=== PATIENT | female | born 1950 | race Caucasian/White ===

== ENCOUNTER 2016-07-22 09:18 | Emergency (ER) | payer MEDICAID ==
[2016-07-22 09:24] VITALS: BP 146/82
--- NOTE | 2016-07-22 11:11 | ER Document Report ---
ED General - General Time seen by provider: 10:20 Mode of Arrival: Ambulatory Information source: Patient TRAVEL OUTSIDE OF THE [place] IN LAST 30 DAYS: No - HPI Onset: Other - see HPI note - General Chief Complaint: Back Pain Stated Complaint: BACK PAIN Notes: Patient is a 65 year old female presenting to the emergency department for chronic back pain. Patient states that she has had 3 years of chronic back pain. Patient states that her pain management stopped giving her narcotics and wanted to start doing epidural shots. Patient does not want these and is requesting narcotic pain medication. Patient states she got some narcotics from her PCP, Geovanna Zhou, a week ago; patient got 3 days supplies of this medication. Patient has had no recent injury to her back. Patient denies any nausea, vomiting, or diarrhea. Patient has a history of degenerative bone disease, arthritis, and back spurs. Patient states her pain management doctors are going to send her to [place] [facility]. (MAXINE STOCKTON) - Related Data Allergies/Adverse Reactions: diphenhydramine HCl [From Benadryl] Allergy (Severe, Verified 07/22/16 12:36) Generalized Itching theophylline anhydrous [From Tj-Dur] Allergy (Intermediate, Verified 07/22/16 12:36) heart races triprolidine HCl [From Actifed] Allergy (Mild, Verified 07/22/16 12:36) skin crawls metoclopramide HCl [From Reglan] Allergy (Verified 07/22/16 12:36) anxious pseudoephedrine HCl [From Actifed] Adverse Reaction (Mild, Verified 07/22/16 12: 36) skin crawls Past Medical History - General Information source: Patient - Social History Smoking Status: Former Smoker Cigarette use (# per day): No Chew tobacco use (# tins/day): No Frequency of alcohol use: None Drug Abuse: None Family History: None Patient has suicidal ideation: No Patient has homicidal ideation: No - Past Medical History Cardiac Medical History: Reports: Hx Hypercholesterolemia, Hx Hypertension Pulmonary Medical History: Reports: Hx Asthma, Hx Bronchitis, Hx COPD Endocrine Medical History: Reports: 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 GI Medical History: Reports: Hx Gastroesophageal Reflux Disease, Hx Hiatal Hernia, Hx Ulcer - BLAS'S ESOPHAGUS Musculoskeltal Medical History: Reports Hx Arthritis - generalized, Reports Hx Musculoskeletal Deformity, Reports Hx Musculoskeletal Trauma Skin Medical History: Reports Hx Psoriasis Past Surgical History: Reports: Hx Cholecystectomy, Hx Hysterectomy - Immunizations Immunizations up to date: No Hx Diphtheria, Pertussis, Tetanus Vaccination: Yes Review of Systems - Review of Systems Constitutional: No symptoms reported EENT: No symptoms reported Cardiovascular: No symptoms reported Respiratory: No symptoms reported Gastrointestinal: No symptoms reported Genitourinary: No symptoms reported Female Genitourinary: No symptoms reported Musculoskeletal: See HPI, Back pain Skin: No symptoms reported Hematologic/Lymphatic: No symptoms reported Neurological/Psychological: No symptoms reported -: Yes All other systems reviewed and negative Physical Exam - Vital signs Interpretation: Normal - General General appearance: Appears well, Alert In distress: Mild - HEENT Head: Normocephalic, Atraumatic Eyes: Normal Pupils: PERRL Mucous membranes: Moist - Respiratory Respiratory status: No respiratory distress Chest status: Nontender Breath sounds: Normal Chest palpation: Normal - Cardiovascular Rhythm: Regular Heart sounds: Normal auscultation Murmur: No - Abdominal Inspection: Normal Distension: No distension Bowel sounds: Normal Tenderness: Nontender Organomegaly: No organomegaly - Back Back: Normal, Tender - diffuse tenderness anywhere you palpate - Extremities General upper extremity: Normal inspection, Normal ROM, Normal strength General lower extremity: Normal inspection, Normal ROM, Normal strength - Neurological Neuro grossly intact: Yes Cognition: Normal Orientation: AAOx4 Salud Coma Scale Eye Opening: Spontaneous [place] Coma Scale Verbal: Oriented Salud Coma Scale Motor: Obeys Commands [place] Coma Scale Total: 15 Speech: Normal - Psychological Associated symptoms: Normal affect, Normal mood - Skin Skin Temperature: Warm Skin Moisture: Dry Course - Re-evaluation Re-evalutation: 07/22/16 20:31 I personally performed the services described in the documentation, reviewed and edited the documentation which was dictated to my scribe in my presence, and it accurately records my words and actions. Patient presents the emergency department with chronic pain states the pain management her family doctor no longer give it to her and she is requesting pain medication here. No new injury same exact pain that she's had chronically for 3 years. No numbness tingling weakness loss of bowel or bladder function. I asked her why they stopped giving her medication she said that they wanted to do procedures and she wanted to them so they would not see her and prescribe her meds unless she was willing to do some procedures to make it better. Says she has referral to another pain management but hasn't gotten in yet. States she has talked to her primary care physician her primary care physician refuses to do it. On examination there is no acute emergency event on examination she well-appearing nontoxic no midline tenderness redness swollen negative neurological examination good pulses and perfusion. Long discussion with her and the case coordinator Eliecer at the bedside to help explain her chronic pain policy and the fact that needs be pain management or primary care physician. Patient left without her paperwork she did return to be seen again apparently with her son but left out of the lobby. Told to return for increasing worsening or new symptoms (ISAIAH CABALLERO) - Vital Signs Vital signs: Temp Pulse Resp BP Pulse Ox 98.6 F 72 14 146/82 H 98 07/22/16 09:23 07/22/16 09:23 07/22/16 09:23 07/22/16 09:23 07/22/16 09:23 Discharge - Discharge Clinical Impression: Chronic back pain Condition: Stable Disposition: HOME, SELF-CARE Additional Instructions: Chronic Back Pain Chronic back pain (pain persisting longer than three months) is a common problem. A medical evaluation can look for herniated disc, arthritis, osteoporosis, tumors, and infections. But at least half the time, there's no obvious treatable cause. Anxiety and depression tend to worsen back pain. Ibuprofen or other anti-inflammatory medicine can help. A heating pad, used for 15-20 minutes at a time, can ease pain. For this type of back pain, narcotic medicines should be avoided. Muscle relaxers are rarely helpful unless you're having spasms. Activity is important. Find an aerobic exercise program that your back can tolerate. Too much rest makes back pain worse. Specific back exercises are usually prescribed to strengthen the back and abdominal muscles. Often, a physical therapist can help. Avoid heavy lifting, working while bent over, or standing with both knees straight. Most back pain patients do better with a firm mattress. If new symptoms of a "herniated disc" (radiation of pain, numbness, or tingling down the back of the leg or weakness in the leg) occur, you should be re-examined. Follow-up with your pain management physician primary care physician for any ongoing treatment of chronic pain return for increasing worsening or new situation. Referrals: GEOVANNA ZHOU PA-C [Primary Care Provider] - Follow up in 3-5 days Scribe Documentation - Scribe Written by [employer]:: Maxine Stockton 07/22/16 15:20 acting as scribe for :: Kwan
== END 2016-07-22 11:52 | disposition home or self-care (01) ==
LOC: ER 09:18
DX: G89.29 Other chronic pain (principal); M54.5 Low back pain; E78.00 Pure hypercholesterolemia, unspecified; I10 Essential (primary) hypertension; J45.909 Unspecified asthma, uncomplicated; J44.9 Chronic obstructive pulmonary disease, unspecified; K21.9 Gastro-esophageal reflux disease without esophagitis; Z90.49 Acquired absence of other specified parts of digestive tract; Z90.710 Acquired absence of both cervix and uterus
CPT/HCPCS: 99283

== ENCOUNTER 2016-07-22 12:22 | Emergency (ER) | payer MEDICAID ==
--- NOTE | 2016-07-22 12:38 | ER Document Report ---
ED Medical Screen (RME) - General Stated Complaint: OVERALL PAIN Time seen by provider: 12:35 Mode of Arrival: Ambulatory Information source: Patient Notes: 65-year-old female presents to ED for bad body pain all over. She states she has had some fever and chills. States she was fed a pain center and they were given her medications at but in June they cut her off all of her pain medicines and went to give her shots in the back. She states she does not want to shots in the back because she had epidural with one of her children attending cannot walk for 2 months.. I have greeted and performed a rapid initial assessment of this patient. A comprehensive ED assessment and evaluation of the patient, analysis of test results and completion of medical decision making process will be conducted by an additional ED providers. TRAVEL OUTSIDE OF THE [place] IN LAST 30 DAYS: No - Related Data Allergies/Adverse Reactions: diphenhydramine HCl [From Benadryl] Allergy (Severe, Verified 07/22/16 09:25) Generalized Itching theophylline anhydrous [From Tj-Dur] Allergy (Intermediate, Verified 07/22/16 09:25) heart races triprolidine HCl [From Actifed] Allergy (Mild, Verified 07/22/16 09:25) skin crawls metoclopramide HCl [From Reglan] Allergy (Verified 07/22/16 09:25) anxious pseudoephedrine HCl [From Actifed] Adverse Reaction (Mild, Verified 07/22/16 09: 25) skin crawls Past Medical History - Past Medical History Cardiac Medical History: Reports: Hx Hypercholesterolemia, Hx Hypertension Denies: Hx Coronary Artery Disease, Hx Heart Attack Pulmonary Medical History: Reports: Hx Asthma, Hx Bronchitis, Hx COPD Neurological Medical History: Denies: Hx Seizures Endocrine Medical History: Reports: 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 Renal/ Medical History: Denies: Hx Peritoneal Dialysis GI Medical History: Reports: Hx Gastroesophageal Reflux Disease, Hx Hiatal Hernia, Hx Ulcer - BLAS'S ESOPHAGUS Musculoskeltal Medical History: Reports Hx Arthritis - generalized, Reports Hx Musculoskeletal Deformity, Reports Hx Musculoskeletal Trauma Skin Medical History: Reports Hx Psoriasis Past Surgical History: Reports: Hx Cholecystectomy, Hx Hysterectomy. Denies: Hx Mastectomy, Hx Open Heart Surgery - Immunizations Immunizations up to date: No Hx Diphtheria, Pertussis, Tetanus Vaccination: Yes
== END 2016-07-22 13:30 | disposition left against medical advice (07) ==
LOC: ER 12:22
DX: Z53.9 Procedure and treatment not carried out, unspecified reason (principal); R52 Pain, unspecified; R50.9 Fever, unspecified
CPT/HCPCS: 99281; 99283

== ENCOUNTER 2016-07-26 15:09 | Emergency (ER) | payer MEDICAID ==
[2016-07-26 16:17] VITALS: BP 140/79
--- NOTE | 2016-07-26 16:19 | ER Document Report ---
ED Medical Screen (RME) - General Stated Complaint: POSSIBLE WITHDRAWLS Time seen by provider: 16:17 Mode of Arrival: Ambulatory Information source: Patient Notes: 65-year-old female presents to ED for possible withdrawal from oxycodone. She states she was in the pain Center he was given her oxycodone a cut her off cold turkey pain management once to give her injections in the back but she did not want that. States she shaking and feels like she cannot walk steadily. States been to 3 days and she had any oxycodone. I have greeted and performed a rapid initial assessment of this patient. A comprehensive ED assessment and evaluation of the patient, analysis of test results and completion of medical decision making process will be conducted by an additional ED providers. TRAVEL OUTSIDE OF THE [place] IN LAST 30 DAYS: No - Related Data Allergies/Adverse Reactions: diphenhydramine HCl [From Benadryl] Allergy (Severe, Verified 07/22/16 12:36) Generalized Itching theophylline anhydrous [From Tj-Dur] Allergy (Intermediate, Verified 07/22/16 12:36) heart races triprolidine HCl [From Actifed] Allergy (Mild, Verified 07/22/16 12:36) skin crawls metoclopramide HCl [From Reglan] Allergy (Verified 07/22/16 12:36) anxious pseudoephedrine HCl [From Actifed] Adverse Reaction (Mild, Verified 07/22/16 12: 36) skin crawls Past Medical History - Past Medical History Cardiac Medical History: Reports: Hx Hypercholesterolemia, Hx Hypertension Denies: Hx Coronary Artery Disease, Hx Heart Attack Pulmonary Medical History: Reports: Hx Asthma, Hx Bronchitis, Hx COPD Neurological Medical History: Denies: Hx Seizures Endocrine Medical History: Reports: 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 Renal/ Medical History: Denies: Hx Peritoneal Dialysis GI Medical History: Reports: Hx Gastroesophageal Reflux Disease, Hx Hiatal Hernia, Hx Ulcer - BLAS'S ESOPHAGUS Musculoskeltal Medical History: Reports Hx Arthritis - generalized, Reports Hx Musculoskeletal Deformity, Reports Hx Musculoskeletal Trauma Skin Medical History: Reports Hx Psoriasis Past Surgical History: Reports: Hx Cholecystectomy, Hx Hysterectomy. Denies: Hx Mastectomy, Hx Open Heart Surgery - Immunizations Immunizations up to date: No Hx Diphtheria, Pertussis, Tetanus Vaccination: Yes Physical Exam - Vital signs Vitals: Temp Pulse Resp BP Pulse Ox 98.2 F 93 16 140/79 H 97 07/26/16 16:16 07/26/16 16:16 07/26/16 16:16 07/26/16 16:16 07/26/16 16:16 Course - Vital Signs Vital signs: Temp Pulse Resp BP Pulse Ox 98.2 F 93 16 140/79 H 97 07/26/16 16:16 07/26/16 16:16 07/26/16 16:16 07/26/16 16:16 07/26/16 16:16
== END 2016-07-26 21:44 | disposition left against medical advice (07) ==
LOC: ER 15:09
DX: F11.23 Opioid dependence with withdrawal (principal); E78.00 Pure hypercholesterolemia, unspecified; I10 Essential (primary) hypertension; J44.9 Chronic obstructive pulmonary disease, unspecified; E11.9 Type 2 diabetes mellitus without complications; Z90.49 Acquired absence of other specified parts of digestive tract; Z90.710 Acquired absence of both cervix and uterus
CPT/HCPCS: 99281

== ENCOUNTER 2016-07-28 03:16 | Emergency (ER) | payer MEDICAID ==
[2016-07-28] MEDS ORDERED: OXYCODONE HCL IR 5 MG TABLET PO ONE (05:21)
[2016-07-28] MEDS ORDERED: CLONIDINE 0.1 MG/24 HR PATCH.TDWK TD ONE (05:21)
--- NOTE | 2016-07-28 05:28 | ER Document Report ---
ED General - General Chief Complaint: Anxiety Stated Complaint: ANXIETY Time seen by provider: 05:20 Notes: Patient is a 65-year-old female that comes emergency department for chief complaint of lower back pain, she states that this pain is chronic, states that she was recommended for back injections for pain by her pain management provider who also stopped prescribing her oxycodone, she states that she has been out for 4 days, she has had diarrhea, shakiness, and generally feeling unwell. She states that she went to the methadone clinic but they told her because she had been taking Valium that they would accept her to begin medications in 2 weeks from 2 days ago. Patient states she was diagnosed with degenerative disc disease and spurring in her back, denies any specific injuries , denies any surgeries, denies any immunocompromise condition or history of IV drug abuse, denies any fevers. TRAVEL OUTSIDE OF THE [place] IN LAST 30 DAYS: No - Related Data Allergies/Adverse Reactions: diphenhydramine HCl [From Benadryl] Allergy (Severe, Verified 07/22/16 12:36) Generalized Itching theophylline anhydrous [From Tj-Dur] Allergy (Intermediate, Verified 07/22/16 12:36) heart races triprolidine HCl [From Actifed] Allergy (Mild, Verified 07/22/16 12:36) skin crawls metoclopramide HCl [From Reglan] Allergy (Verified 07/22/16 12:36) anxious pseudoephedrine HCl [From Actifed] Adverse Reaction (Mild, Verified 07/22/16 12: 36) skin crawls Past Medical History - General Information source: Patient - Social History Smoking Status: Former Smoker Chew tobacco use (# tins/day): No Frequency of alcohol use: None Drug Abuse: None Lives with: Family Family History: Reviewed & Not Pertinent Patient has suicidal ideation: No Patient has homicidal ideation: No - Past Medical History Cardiac Medical History: Reports: Hx Hypercholesterolemia, Hx Hypertension Denies: Hx Coronary Artery Disease, Hx Heart Attack Pulmonary Medical History: Reports: Hx Asthma, Hx Bronchitis, Hx COPD Neurological Medical History: Denies: Hx Seizures Endocrine Medical History: Reports: 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 Renal/ Medical History: Denies: Hx Peritoneal Dialysis GI Medical History: Reports: Hx Gastroesophageal Reflux Disease, Hx Hiatal Hernia, Hx Ulcer - BLAS'S ESOPHAGUS Musculoskeltal Medical History: Reports Hx Arthritis - generalized, Reports Hx Musculoskeletal Deformity, Reports Hx Musculoskeletal Trauma Skin Medical History: Reports Hx Psoriasis Past Surgical History: Reports: Hx Cholecystectomy, Hx Hysterectomy. Denies: Hx Mastectomy, Hx Open Heart Surgery - Immunizations Immunizations up to date: No Hx Diphtheria, Pertussis, Tetanus Vaccination: Yes Review of Systems - Review of Systems Constitutional: See HPI EENT: No symptoms reported Cardiovascular: No symptoms reported Respiratory: No symptoms reported Gastrointestinal: See HPI Genitourinary: No symptoms reported Female Genitourinary: No symptoms reported Musculoskeletal: See HPI Skin: No symptoms reported Hematologic/Lymphatic: No symptoms reported Neurological/Psychological: No symptoms reported Physical Exam - Vital signs Vitals: Temp Pulse Resp BP Pulse Ox 98.2 F 87 18 130/110 H 96 07/28/16 03:30 07/28/16 03:30 07/28/16 03:30 07/28/16 03:30 07/28/16 03:30 Interpretation: Normal - General General appearance: Appears well, Alert In distress: None - Generally disheveled appearing, no distress - HEENT Head: Normocephalic, Atraumatic Eyes: Normal Pupils: PERRL - Respiratory Respiratory status: No respiratory distress Chest status: Nontender Breath sounds: Normal Chest palpation: Normal - Cardiovascular Rhythm: Regular Heart sounds: Normal auscultation Murmur: No - Abdominal Inspection: Normal Distension: No distension Bowel sounds: Normal Tenderness: Nontender. No: Tender, Guarding Organomegaly: No organomegaly - Back Back: Vertebra tenderness - Generalized mid to lower back tenderness, nonspecific, no obvious repeatable point tenderness, no signs of injury, no saddle anesthesia, patient moves upper and lower extremities in full range of motion without difficulty, normal distal neurovascular exam - Extremities General upper extremity: Normal inspection, Nontender, Normal color, Normal ROM , Normal temperature General lower extremity: Normal inspection, Nontender, Normal color, Normal ROM , Normal temperature, Normal weight bearing. No: Sathish's sign - Neurological Neuro grossly intact: Yes Cognition: Normal Orientation: AAOx4 Salud Coma Scale Eye Opening: Spontaneous [place] Coma Scale Verbal: Oriented [place] Coma Scale Motor: Obeys Commands [place] Coma Scale Total: 15 Speech: Normal Motor strength normal: LUE, RUE, LLE, RLE Sensory: Normal - Psychological Associated symptoms: Normal affect, Normal mood - Skin Skin Temperature: Warm Skin Moisture: Dry Skin Color: Normal Course - Re-evaluation Re-evalutation: No specific tenderness noted over the mid to lower back, negative straight leg raise, no neurovascular deficits, no saddle anesthesia. No tachycardia, no fever. Patient provided with clonidine, Phenergan for symptoms of withdrawals, instructed to follow-up with her provider for additional discussion of additional options, discussed return precautions in detail, patient states understanding and agreement. - Vital Signs Vital signs: Temp Pulse Resp BP Pulse Ox 97.7 F 75 19 145/90 H 97 07/28/16 06:11 07/28/16 06:11 07/28/16 06:11 07/28/16 06:11 07/28/16 06:11 Discharge - Discharge Clinical Impression: Withdrawal symptoms, drug or narcotic Qualifiers: Substance type: opioid Qualified Code(s): F11.23 - Opioid dependence with withdrawal Chronic back pain Qualifiers: Back pain location: low back pain Back pain laterality: unspecified Sciatica presence: without sciatica Qualified Code(s): M54.5 - Low back pain Condition: Stable Disposition: HOME, SELF-CARE Additional Instructions: Take off the patch in 3-5 days. Cover the patch when you shower. Take the Phenergan as directed if needed. Follow-up with your provider for additional management. Return to emergency department for any concerning or worsening symptoms including numbness, fever, etc. Prescriptions: Promethazine HCl [Phenergan 25 mg Tablet] 1 - 2 tab PO Q6H PRN #15 tablet PRN Reason: Referrals: [facility] [Provider Group] - Follow up as needed
[2016-07-28 06:12] VITALS: BP 145/90
== END 2016-07-28 06:11 | disposition home or self-care (01) ==
LOC: ER 03:16
DX: F11.23 Opioid dependence with withdrawal (principal); K52.1 Toxic gastroenteritis and colitis; T40.2X5A Adverse effect of other opioids, initial encounter; G89.29 Other chronic pain; M54.5 Low back pain; I10 Essential (primary) hypertension; J44.9 Chronic obstructive pulmonary disease, unspecified; E11.9 Type 2 diabetes mellitus without complications; Z87.891 Personal history of nicotine dependence; Z88.8 Allergy status to other drugs, medicaments and biological substances
CPT/HCPCS: 99283; J3490 ×2